=== PATIENT | male | born 1945 | race Caucasian/White ===

== ENCOUNTER 2017-03-20 09:08 | Day surgery (SDC) | payer MEDICARE ==
[~2017-03-20] VITALS: Ht 180.3 cm; Wt 114.0 kg
[2017-03-20] VITALS (8 sets, daily range): BP systolic 126–154; BP diastolic 63–71; PULSE 58–81; RESP 14–18; O2SAT 92–98
[~2017-03-20 09:08] MED LIST: AMLO10TA3 PO; ASPI-973 PO; Bupivacaine Liposome 1.3% 20 mL Inj INFILTRATE ONE; CARB100T47 PO; CeFAZolin 2 Gm/50 mL D5W IV Premix IV ONE; FINA5TAB9 PO; LIP40 PO; LISI40TA PO; Lactated Ringer's 1,000 ML IV ONE; Lactated Ringer's 1,000 ML IV SCH; VARD20TA30 PO; Vancomycin Inj 1,000 MG in IV Premix 1 EACH IV ONE
[2017-03-20] MEDS ORDERED: Dexamethasone 4 mg/mL Inj ONE (09:09)
[2017-03-20] MEDS ORDERED: fentaNYL-PF 50 mCg/mL 2 mL Inj ONE (09:09)
[2017-03-20] MEDS ORDERED: EPHEDrine/NS 5 mg/mL 5 mL Syringe ONE (09:09)
[2017-03-20] MEDS ORDERED: Propofol 10,000 mCg/mL 20 mL Inj ONE (09:09)
[2017-03-20] MEDS ORDERED: Ondansetron 2 mg/mL 2 mL Inj ONE (09:09)
[2017-03-20] MEDS ORDERED: Lactated Ringer's 1,000 ML IV ONE (09:53)
--- NOTE | 2017-03-20 10:35 | PCM.HPANE ---
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,chest, forearm- cleared by ID) Medications Blood Thinner: Aspirin Hypertension Medication: Yes Home Meds Incl Beta Adrianna: No Reported Medications Lisinopril 40 Mg [id number] Mg PO DAILY 30 Days Ref 0 03/10/17 Vardenafil (Levitra)20 Mg Nritsv25 Mg PO PRN erectile dysfunction 03/10/17 Finasteride 5 Mg Tablet5 Mg PO DAILY 30 Days Ref 0 03/10/17 Carbamazepine (Carbamazepine ER)100 Mg Tab.[id number] Mg PO Q12H 03/10/17 Atorvastatin (Lipitor)40 Mg Wddtix34 Mg PO DAILY Ref 0 03/10/17 Aspirin 81 Mg Sfjwfx14 Mg PO DAILY Ref 0 03/10/17 Amlodipine 10 Mg Oonxvv17 Mg PO DAILY Ref 0 03/10/17 History History of ENT Problems?: No HEENT History: Denies:: Abnormal Airway Dysphagia Denture Type: None Teeth Condition: Within Normal Limits Hx of Heart Problems?: Yes Cardiovascular History: Positive for:: Hypertension Denies:: AICD Heart Murmur Pacemaker Peripheral Vascular Hx of Respiratory Problem?: No Respiratory History: Denies:: Asthma COPD Emphysema Oxygen Administration Pneumonia Use of C-PAP Machine Use of Inhalers / NEBS Hx Neurologic Problems?: Yes Neurological History: Positive for:: Seizures (petit mal, none for 29 years) Denies:: CVA Multiple Sclerosis Parkinson's Disease Hx of GI Problems?: No Hx of Problems?: No Male Hx: Positive for:: Prostate Problems (bph) Skin History: Positive for:: History Skin Disorders? (recurrent MRSA-right forearm, axilla, chest- cleared by Dr Mauro) Hx Musculoskeletal Problems?: Yes Musculoskeletal History: Positive for:: Degenerative Joint Musculoskeletal Trauma (right knee current admission problem) Osteoarthritis Hx of Psycho/Social Problems?: No Hx Surgeries?: Yes (CABG) Hx Any Other Health Problems?: Yes Other History: Denies:: Cancer Thyroid Disease Hx Diabetes: Yes Hx Alcohol Use: NoHx Substance Use: NoHave You Smoked inLast 12 mo: No Stop/Bang S-Snoring: Do You Snore Loudly: No T-Tired: feel tired, fatigued: No O-Obsered: Observed not breath: No P-Blood Pressure: treated: Yes B- Body Mass Index > 35 kg/m2: Yes A- Age over 50: Yes N- Neck Large Circumference: No G- Gender Male: Yes AMI Total Score: 4 AMI Risk Assessment: High Risk, =/>3 Yes AMI Category 4 OutPt Procedure: Yes Risk Assessment Category Category 1A: Patient has history of documented sleep apnea, and HAS NOT received any narcotic, sedative or anesthesia administration during this stay. Category 1B: Patient has history of documented sleep apnea, and HAS received any narcotic , sedative or anesthesia administration during this stay Category 2: Patient has SUSPECTED Obstructive Sleep Apnea, and HAS received any narcotic , sedative or anesthesia administration during this stay. Category 3: Patient has SUSPECTED Obstructive Sleep Apnea and HAS NOT received narcotic, sedative or anesthesia administration during this stay. Category 4: Outpatient in Procedural Areas with known sleep apnea or who screen positive for High Risk via the STOP/BANG questionnaire. Exam Exam Vital Signs Vital Signs Date Time Temp Pulse Resp B/P Pulse Ox O2 Delivery O2 Flow Rate FiO2 03/20/17 09:55 35.6 58 17 144/71 95 Room Air General Appearance: Alert, Oriented X3, Cooperative, No Acute Distress HEENT/AIRWAY: MP 2, Neck Movement (from), Mouth Opening (3 fb) Lungs: Clear to Auscultation, Normal Air Movement Heart: Exam Unremarkable, Regular Rate/Rhythm, No Murmurs/Rubs/Gallops Meds/Labs/Diagnostics Admission Meds Current Medications Vancomycin/0.9 % Sod Chloride 1000 mg/Premix 200 ml @ 133.333 mls/hr PREOP ONCE IV Last administered on 03/20/17 09:54; Start 03/20/17 at 06:00; Stop at 07:29; Status DC Lactated Ringer's (Lr) 1,000 ml @ ud STK-MED ONCE IV Last administered on 7/17 /17at 09:53; Start 03/20/17 at 09:53; Stop 03/20/17 at 09:54; Status DC Plan Impression Patient chart reviewed, patient interviewed and anesthestic plan with risks, benefits, and alternatives discussed, and informed consent obtained. NPO per Anesth. Guidelines: Yes ASA Physical Status: ASA2 Mod Systemic Disease Anesthetic Plan: GA Bene/Risks/Altern/Consents: Yes HP Complete Prior to Induction: Yes Other Patient prefers GA over SAB. Kurtis Rivera MD Mar 20, 2017 10:35
[2017-03-20] MEDS ORDERED: Bupivacaine Liposome 1.3% 20 mL Inj ONE (11:47)
[2017-03-20] MEDS ORDERED: Tranexamic Acid 100 mg/mL 10 mL Inj ONE (11:47)
[2017-03-20] MEDS ORDERED: 0.9% Sodium Chloride 100 ML ONE (11:48)
[2017-03-20] MEDS ORDERED: Bupivacaine-MPF 0.5% W/EPI 30 mL Inj INFILTRATE ONE (12:08)
[2017-03-20] MEDS ORDERED: Gentamicin 40 mg/mL 2 mL Inj IRRIGATION ONE (12:08)
[2017-03-20] MEDS ORDERED: Bupivacaine Liposome 1.3% 20 mL Inj INFILTRATE ONE (12:08)
[2017-03-20] MEDS ORDERED: Phenylephrine 10,000 mCg/mL Inj IVPUSH PRN (12:25)
[2017-03-20] MEDS ORDERED: EPHEDrine Sulfate 50 mg/mL Inj IM PRN (12:25)
[2017-03-20] MEDS ORDERED: HYDROmorphone 1 mg/mL Inj IVPUSH PRN (12:25)
[2017-03-20] MEDS ORDERED: EPHEDrine Sulfate 50 mg/mL Inj IVPUSH PRN (12:25)
[2017-03-20] MEDS ORDERED: Lactated Ringer's 1,000 ML IV SCH (12:25)
[2017-03-20] MEDS ORDERED: Labetalol 5 mg/mL 4 mL Inj IV PRN (12:25)
[2017-03-20] MEDS ORDERED: Atropine 0.4 mg/mL Inj IVPUSH PRN (12:25)
[2017-03-20] MEDS ORDERED: Ondansetron 2 mg/mL 2 mL Inj IVPUSH PRN (12:25)
[2017-03-20] MEDS ORDERED: Lactated Ringer's 500 ML IV PRN (12:25)
[2017-03-20] MEDS ORDERED: fentaNYL-PF 50 mCg/mL 2 mL Inj IVPUSH PRN (12:25)
[2017-03-20] MEDS ORDERED: oxyCODONE-Acetamin 5-325 mg Tablet PO ONE (14:42)
[2017-03-20] MEDS ORDERED: oxyCODONE-Acetamin 5-325 mg Tablet PO PRN (14:45)
--- NOTE | 2017-03-20 14:53 | DRSVH ---
PROCEDURE: X-RAY RIGHT KNEE, ONE OR TWO VIEWS ([id number]) INDICATIONS: POST R MEDIAL UNI TECHNIQUE: 2 views of the knee were acquired. COMPARISON: [facility], CR, XR KNEE ARTHRITIC SERIES RT, 11/30/2016, 11:24. FINDINGS: Bones: Expected postoperative changes related to a medial tibiofemoral compartment hemiarthroplasty a re noted. The patellar prosthetic components are appropriately seated and appear to be intact withou t periprostatic fracture or surrounding lucency. The remainder of the imaged osseous structures are otherwise within normal limits and similar to the prior radiographs. No suspicious osseous lesions a re present. There is no dislocation. Soft tissues: Expected postoperative changes within the overlying soft tissues are identified but the re is a soft tissue air and edema. A drainage catheter seen overlying the knee. No unexpected radio paque foreign bodies are identified. IMPRESSION: Expected postoperative changes related to a medial tibiofemoral compartment hemiarthroplasty. Dictated by: Rickey Roberts M.D. on 03/20/2017 at 13:43 Approved by: Rickey Roberts M.D. on 03/20/2017 at 13:51
--- NOTE | 2017-03-20 15:36 | PCM.ANEP1 ---
Post Anesthesia PACU Phase 1 Assessment Date of Service: Mar 20, 2017 Vital Signs Vital Signs Date Time Temp Pulse Resp B/P Pulse Ox O2 Delivery O2 Flow Rate FiO2 03/20/17 14:40 75 16 154/68 93 Room Air 03/20/17 14:26 74 16 149/67 94 Room Air 03/20/17 14:10 78 16 143/68 92 Nasal Cannula 2 03/20/17 13:55 81 18 136/70 96 Nasal Cannula 2 03/20/17 13:50 80 16 126/63 98 Simple Mask 10 03/20/17 13:42 37.2 81 14 127/65 98 Simple Mask 10 03/20/17 09:55 35.6 58 17 144/71 95 Room Air Anesthetic Administered: GA Level of Alertness: Awake, talking KEITA's with Equal Strength: Yes Pain: Yes Pain Scale Score: 4 Nausea or Vomiting: No CV Function & Hydration Stable: Yes Airway Device: none Oxygen Delivery: Room Air Lungs: Clear to Auscultation, Normal Air Movement Dermatome Level: Full Sensation PACU Phase 2 Assessment Complications: No Follow up Care: No Patient Instructions Provided: N/A Kurtis Rivera MD Mar 20, 2017 15:36
--- NOTE | 2017-03-20 21:21 | OP ---
[address] [address] OPERATIVE REPORT PATIENT: DALE RODRÍGUEZ : 1945 MR#: [id number] ADMIT: 03/20/2017 JOB ID: [id number] DATE OF SURGERY: 03/20/2017 SURGEON: Kel Rubalcava MD. TRACK SUPERVISOR: Faith Norris PA-C. Drug And Alcohol Counselor required due to the complexity of the operation. PREOPERATIVE DIAGNOSIS(ES): Osteoarthritis, medial compartment, right knee. POSTOPERATIVE DIAGNOSIS(ES): Osteoarthritis, medial compartment, right knee. INDICATIONS: This gentleman has had persistent pain and disability. He elects to proceed with a unicompartmental knee replacement, understanding and accepting the potential for risks and complications, which include but is not limited to, infection, thromboembolic, neurovascular events, as well as potential for progressive arthritis in unresurfaced compartments. Understanding these, he wishes to proceed. PROCEDURE IN DETAIL: The patient was prepped and draped in usual sterile fashion. An anteromedial approach was made to the knee. Dissection was carried down. Frontal bossing and a patellar osteophyte were removed. The tibial jig was utilized to make a standard tibial cut, spacer block was applied and a distal femoral cut was made. The femur was sized to a #6 chamfer cutting jig fixed in appropriate position of rotation and drill holes and chamfer cuts were made. The tibia was sized to an E tibial component, fixed securely into place. Trial reduction was performed and a 9 mm polyethylene was chosen. Pressurized lavage was followed by pressurized cementation of the components. All meniscal tissue and osteophytes were removed from the knee. The excess cement was removed during the curing process. Final construct was assembled. Tourniquet was let down. Hemostasis was achieved. The knee was closed over a deep Hemovac drain with #2 Quill deep followed by a 2-0, 3-0, and a 4-0 intracuticular stitch. Steri-Strips were applied. The patient was taken to the recovery room in stable condition. He tolerated the procedure well. There were no complications.
== END 2017-03-20 23:59 | disposition home or self-care (01) ==
LOC: SAS 09:08
PROVIDERS: ATTEND Orthopaedic Surgery
DX: M17.11 Unilateral primary osteoarthritis, right knee (principal); M89.9 Disorder of bone, unspecified; I10 Essential (primary) hypertension; Z95.1 Presence of aortocoronary bypass graft; Z79.82 Long term (current) use of aspirin
CPT/HCPCS: 27446; 73560; C1713; C1776; J0690; J1100; J1580; J2405; J3010; J3370; J7120